=== PATIENT | female | born 1990 | race Caucasian/White ===

== ENCOUNTER 2025-07-28 07:19 | Inpatient (IN) | payer OTHER, SELFPAY ==
--- NOTE | 2025-07-28 08:25 | PM.OBHP.1 ---
OB HPI Date/Time Date of admission: 07/28/25 Date Patient Seen: 07/28/25 Time Patient Seen: 07:30 History of Present Condition Chief complaint: INDUCTION : 2 Para: 0 Estimated Date of Delivery: 07/17/25 Estimated Gestational Age (weeks): 41w4d Narrative: Isadora Smith is a 35 year old female at 41 weeks 5 days by LMP and confirmed by 7 week ultrasound. She presents today for induction of labor. Had vicente catheter placed for cervical ripening 07/27/25 AM, had contractions for approx 4 hours mid-day, then they stopped and was able to pully vicente out without pain approx 2100. Isadora began her with [facility] and transferred to [facility] at 34 weeks. Her was complicated only by AMA, Covid at 38 weeks, Rh negative, GBS positive, and received varicalla vaccination the week of conception. Isadora is here today with her , Uri. They are excited to meet their son. Isadora is planning an epidural. Isadora's NIPT included Rh for baby and this was found to be negative. Indications Indication for induction OB: post dates History of Present care: good care, initiated at week # (7), number of visits (14) and pounds weight gain (24) Dating criteria: LMP confirmed by 1st trimester US Ultrasounds: normal 1st trimester US and normal mid trimester US Obstetrical complications: none Medical complications: immunologic (Covid at 38 weeks) Preadmission Labs Blood type: 0 (-) negative -: Antibody screen: positive (initially positive; repeated for negative), Cystic fibrosis screen: negative, GBS status: positive, HBsAG: negative, HIV: negative and RPR/VDLR: negative -: Chlamydia screen: not detected and Gonorrhea screen: not detected -: Rubella: immune and Varicella: immune HCT: 34.6 HCAB: negative Cell-free DNA: NIPT neg x 3, Rh negative fetus 1 hr GTT: 93 Prior (ies) History: Hx # Term Pregnancies: 0 Hx # Pregnancies: 0 Number of Living Children: 0 Multiple births: 0 Spontaneous abortions: 1 Ectopic pregnancies: 0 Elective abortions: 0 Evaluation Evaluation Baseline heart rate: 125 Variability: Moderate (6-25) monitor accelerations: Present Monitor Decelerations: Absent Contraction Frequency (minutes): 10 (irregular and painless) Category of Tracing: Reactive Dilation (cm): 2 Effacement (%): 60 Dilation: 1-2 cm Effacement: 60-70% station: -3 Position of cervix: posterior Consistency: medium Avila score: 4 PFSH Medical History Miscarriage Dense breast tissue Family History Grandfather Cancer Grandmother Diabetes mellitus Mother Hypothyroid Social History (Updated 07/28/25 @ 08:41 by Cristina Raymond CNM, JUAN) marital status: unmarried,living together number of children: 0 household members: significant other lives independently: Yes housing: house occupational status: employed current occupational exposures/hazards: No do you feel safe at home: Yes alcohol intake: former substance use type: marijuana well-balanced diet: daily or most days eating out: 1-3 times/week Meds Home Medications and Allergies Allergies Allergy/AdvReac Type Severity Reaction Status Date / Time No Known Drug Allergies Allergy Verified 07/28/25 08:32 Review of Systems Review of Systems Narrative: None except for as mentioned in HPI OB Exam Vital signs Blood Pressure: 123/80 Pulse Rate: 98 Respiratory Rate: 18 Temperature: 97.2 F Resp Effort & Inspection: normal respiratory effort and able to speak in complete sentences Auscultation: clear to auscultation bilaterally Cardio Rate: regular rate Rhythm: regular rhythm Heart Sounds: S1 normal, S2 normal and normal, physiologic split S2 GI Inspection: normal to inspection (gravid) Presentation: vertex Estimated Weight (lbs): 9 Objective Labs 07/28/25 08:20 Assessment and Plan Assessment and Plan Assessment and Plan narrative: at 41w4d by LMP GBS positive Rh negative Covid in AMA Intact membranes RNST on admission Admit to L&D with typical labor orders. Continue cervical ripening with misoprostol; plan for pitocin when indicated. Start GBS prophylaxis with active labor OR ROM. Time-Based Coding :: [TOTAL MINUTES] spent with patient and on the chart (including review of chart, obtaining history, exam, reviewing outside data, placing orders, documenting exam and treatment plan, and counseling patient) on [DATE].
[2025-07-28 08:45] VITALS: BP 123/80; PULSE 98; RESP 18; TEMP 36.2
[2025-07-28 08:48] LABS: Add Manual Diff / Slide Review NO; Hematocrit 35.6 % (36-46); Hemoglobin 12.2 g/dL (12.0-16.0); Lymphocytes Absolute Auto 1600 /uL (1100-4500); Mean Corpuscular HGB Conc 34.4 % (30-36); Mean Corpuscular Hemoglobin 32.8 PG (26-34); Mean Corpuscular Volume 95.3 fL (80-100); Platelet Count 131 X10^3/uL (150-400)
--- NOTE | 2025-07-28 13:43 | PM.OBPNLAB ---
Date/Time Date Patient Seen: 07/28/25 Time Patient Seen: 12:43 Pain Control Comments: Isadora is doing well. Feeling very mild contractions, mostly in her back. VS: 131/77, 87, 35.7 C Pelvic Exam Effacement (%): 60 station: -3 Comments: Exam not repeated Contractions Contraction frequency (min): 10 (mild) Contraction pattern: Irregular Status status: Category l Heart Rate Baseline: 125 Monitor Accelerations: Present Monitor Decelerations: Absent Monitor Variability: Moderate Assessment and Plan Assessment: active labor Plan: continuous present management Comments: Repeat misoprostol 50 mcg buccally x 1 Recheck in 4 hours.
[2025-07-28] MEDS: OXYTOCIN PREMIX 30 UNIT/500 ML PLAST..BAG IV (16:56)
[2025-07-28] MEDS: LACTATED RINGERS 1,000 ML 100 ML IV ×2 (16:56→21:53)
--- NOTE | 2025-07-28 19:43 | PM.OBPNLAB ---
Date/Time Date Patient Seen: 07/28/25 Time Patient Seen: 17:30 Pain Control Comments: Isadora is coping well. Wanted to get into the tub after cervical exam. Pain is mild/manageable. Pelvic Exam Dilation (cm): 2.5 Effacement (%): 80 station: -2 Amniotic membrane status: Intact Comments: BP: 129/75 HR: 87 bpm Temp: 35.7 C Contractions Contractions on admission: none Monitor mode: External Pitocin rate (mU/min): 4 Contraction frequency (min): 3 (mild) Contraction duration (min): 1 Contraction pattern: Regular Contraction intensity: Moderate Status status: Category l Heart Rate Baseline: 120 Monitor Accelerations: Present Monitor Decelerations: Absent Monitor Variability: Moderate Assessment and Plan Assessment: active labor Comments: Term nullip GBS positive Post dates Rh negative FHR Cat 1 Pitocin started at 1656 after 2 doses of misoprostol Reviewed good but slow progress
[2025-07-28] MEDS: AMPICILLIN 2,000 MG in SODIUM CHLORIDE 0.9% 100 ML 200 MG IV (20:01)
--- NOTE | 2025-07-28 22:44 | PM.AN.REGBLK ---
Regional Block Pre-procedure Procedure: Continuous Lumbar Epidural for L&D Attending OB provider: Cristina Raymond PMH/ROS narrative: , 41 4/7 weeks, induction for PD, AMA. ROS negative. PSH/Anesthesia history narrative: No history of anesthesia issues Exam narrative: Mall 2, good dentition ASA Class: II Labs: Hct 35.6 % (36-46) L 07/28/25 08:20 Plt Count 131 X10^3/uL (150-400) L 07/28/25 08:20 Medications: Current Medications Generic Name Dose Route Start Last Admin Trade Name Freq PRN Reason Stop Dose Admin Calcium Carbonate 1,000 mg 07/28/25 08:20 Calcium Carbonate 500 Mg Tab PO Q2HR PRN Dyspepsia Carboprost Tromethamine 250 mcg 07/28/25 08:20 Carboprost 250 Mcg/Ml Ampul IM Q90M PRN Bleeding Diphenhydramine HCl 25 mg 07/28/25 22:42 Diphenhydramine 50 Mg/Ml Vial IV Q30M PRN Itching Ephedrine Sulfate 10 mg 07/28/25 22:43 Ephedrine 50 Mg/Ml Vial IV Q5M PRN Blood Pressure - Low Fentanyl 100 mcg 07/28/25 08:20 Fentanyl 100 Mcg/2 Ml Inj IV Q1H PRN Pain, Severe (7-10) Oxytocin/Lactated Ringer's 30 unit in 500 mls @ 200 mls/hr 07/28/25 08:20 Oxytocin Premix IV CONT PRN Bleeding Protocol Tranexamic Acid 1,000 mg/ 100 mls @ 600 mls/hr 07/28/25 08:20 Sodium Chloride IV NOW PRN Bleeding Oxytocin/Lactated Ringer's 30 unit in 500 mls @ 2 mls/hr 07/28/25 08:30 07/28/25 16:56 Oxytocin Premix IV 2 milliunit/min TITRATE DOLORES 2 mls/hr Protocol Administration 2 MILLIUNIT/MIN Lactated Ringer's 1,000 mls @ 999 mls/hr 07/28/25 22:43 Lactated Ringers IV 07/28/25 23:43 BOLUS ONE FENT 2MCG/ML BUPIV 0.125% EPI 200 mcg in 100 mls @ 12 mls/hr 07/28/25 22:45 Fentanyl/Bupiv/Ns 2mcg/Ml - 0.125% EPIDURAL CONT DOLORES Protocol Lidocaine HCl 20 ml 07/28/25 08:20 Lidocaine 1% 20 Ml INJ INTRA-OP PRN Post Delivery Methylergonovine Maleate 0.2 mg 07/28/25 08:20 Methylergonovine 0.2 Mg Tablet PO Q6HR PRN Heavy Bleeding Methylergonovine Maleate 0.2 mg 07/28/25 08:20 Methylergonovine 0.2 Mg/Ml Vial IM NOW PRN Bleeding Mineral Oil 30 ml 07/28/25 08:20 Mineral Oil 30 Ml Udc TOP PRN PRN Version Misoprostol 800 mcg 07/28/25 08:20 Misoprostol 200 Mcg Tablet GA NOW PRN Bleeding Misoprostol 400 mcg 07/28/25 08:20 Misoprostol 200 Mcg Tablet SL NOW PRN Bleeding Misoprostol 50 mcg 07/28/25 08:20 07/28/25 12:25 Misoprostol 25 Mcg Tablet SL 50 mcg Q4H PRN Administration cervical ripening Nalbuphine HCl 5 mg 07/28/25 22:42 Nalbuphine 20 Mg/Ml Ampul IV Q6H PRN Itching Naloxone HCl 0.2 mg 07/28/25 08:20 Naloxone 0.4 Mg/Ml Vial IV Q2MIN PRN Opiate Reversal Naloxone HCl 0.2 mg 07/28/25 22:42 Naloxone 0.4 Mg/Ml Vial IV Q2MIN PRN Opiate Reversal Ondansetron HCl 4 mg 07/28/25 08:20 Ondansetron 4 Mg/2 Ml Inj IV Q4HR PRN Nausea And Vomiting Ondansetron HCl 4 mg 07/28/25 22:42 Ondansetron 4 Mg/2 Ml Inj IV Q4H PRN Nausea And Vomiting Oxytocin 10 unit 07/28/25 08:20 Oxytocin 10 Unit/Ml Vial IM NOW PRN Bleeding Allergies: Allergies Allergy/AdvReac Type Severity Reaction Status Date / Time No Known Drug Allergies Allergy Verified 07/28/25 09:17 Procedure Insertion date: 07/28/25 Insertion time: 22:06 Prep/Local: 1% lidocaine (chloraprep skin prep, dry x 3 min) Interspace: L4-5 Patient position: sitting Needle: 17 gauge Tuohy Loss of resistance with: saline ANNAMARIE at (cm): 7 Catheter placed at SKIN (cm): 14 Catheter in SPACE (cm): 7 Sensory level: T10 Insertion: No CSF, No Blood, No Paresthesia with insertion, No Paresthesia with injection and No Test dose reaction Initial Medications TEST DOSE time: 22: BOLUS DOSE time: 22:36 BOLUS DOSE (mL): 5 BOLUS DOSE med: other (pump solution) Infusion INFUSION: 0.125% bupivacaine and with fentanyl 2 mcg/mL Initial rate (mL/hr): 12 Post-procedure Anesthesia date START: 07/28/25 Anesthesia time START: 22:06 Anesthesia date END: 07/30/25 Anesthesia time END: 17:00 Post-procedure Anesthesia Assessment: Yes CV function: HR/BP stable, Yes Resp function: RR/sat/airway adequate, Yes Post-op hydration adequate, Yes Pain control adequate, Yes Nausea & vomiting absent, Yes Temperature > 36 C, Yes Mental status appropriate and Yes Anesthesia complications
--- NOTE | 2025-07-28 22:50 | PM.OBPNLAB ---
Date/Time Date Patient Seen: 07/28/25 Time Patient Seen: 22:50 Pain Control Pain control: epidural Comments: SROM at 195, copious clear fluid and almost immediately, contractions became more painful. Isadora managed contractions with Uri's support; did not want to try nitrous, opted for epidural, which was placed without complications and she was comfortable by 2244. Reported feeling more pressure. Pitocin had reached 6 mu/min, was decreased to 3 mu/min when contractions became intense and close. Antibiotics for GBS prophylaxis started at 1999. Pelvic Exam Dilation (cm): 4.5 Effacement (%): 90 station: -1 Amniotic membrane status: Ruptured (clear fluid) Comments: SROM 195, clear fluid Contractions Monitor mode: External Pitocin rate (mU/min): 3 Contraction frequency (min): 3 (mild) Contraction duration (min): 1 Contraction pattern: Regular Contraction intensity: Moderate Status status: Category l Heart Rate Baseline: 125 Monitor Accelerations: Present Monitor Decelerations: Absent Monitor Variability: Moderate Assessment and Plan Comments: Term nullip AMA GBS positive FHR Cat 2 Continue present management. Anticipate NSVB.
[2025-07-29] MEDS: AMPICILLIN 1,000 MG in SODIUM CHLORIDE 0.9% 100 ML 200 MG IV ×5 (00:02→21:50)
[2025-07-29] MEDS: FENT 2MCG/ML BUPIV 0.125% EPI 200 MCG/100 ML PLAST..BAG 12 MCG EPIDURAL ×3 (04:10→18:54)
--- NOTE | 2025-07-29 04:25 | PM.OBPNLAB ---
Date/Time Date Patient Seen: 07/29/25 Time Patient Seen: 04:15 Pain Control Pain control: epidural Comments: Isadora comfortable with epidural. Slept a bit initially, now wide awake, as she usually is between [id number] lately. Consents to exam but wants to wait to be sure she's comfortable since she just pressed her button. Pelvic Exam Dilation (cm): 5 Effacement (%): 90 station: -1 Amniotic membrane status: Ruptured (clear fluid) Comments: CE at 0431. Anterior cervix with edema. Smal caput noted on vertex. Easily palpable fontenell at prior exam difficult to find this time. Contractions Monitor mode: External Pitocin rate (mU/min): 10 Contraction frequency (min): 3 (q3-4 with coupling) Contraction duration (min): 1 Contraction pattern: Regular Contraction intensity: Moderate Status status: Category l Heart Rate Baseline: 125 Monitor Accelerations: Present Monitor Decelerations: Absent Monitor Variability: Moderate Assessment and Plan Comments: Term nullip AMA Post dates GBS prophylaxis indicated Epidural FHR Cat 1 Continue present management, including titrating pitocin per protocol. Recommend position changes. Benadryl for edematous cervix.
[2025-07-29] MEDS: diphenhydrAMINE 50 MG/ML VIAL 25 MG IV ×2 (04:56→23:00)
--- NOTE | 2025-07-29 09:00 | PM.OBPNLAB ---
Date/Time Date Patient Seen: 07/29/25 Time Patient Seen: 08:55 Pain Control Pain control: epidural Comments: CNM assuming care from CNChari Raymond. Isadora is resting be bed comfortably with adequate epidural anesthesia. Has been able to rest and recover, very sleepy after IV diphenhydramine. remains present and supportive. VS: BP 126/70, JR 81bpm, T 36.7C Temporal Pelvic Exam Dilation (cm): 6.5 Effacement (%): 80 station: -1 Amniotic membrane status: Ruptured (clear fluid) Comments: mild edema to cervix presentation: LOP, deflexed Contractions Monitor mode: External Pitocin rate (mU/min): 20 Contraction frequency (min): 3 Contraction duration (min): 2 Contraction pattern: Regular Contraction intensity: Moderate Status status: Category ll Heart Rate Baseline: 130 Monitor Accelerations: Present Monitor Decelerations: Early and Variable Monitor Variability: Moderate Assessment and Plan Assessment: active labor (SROM x13 hours without sx of infection) and induction ongoing Plan: continuous present management Comments: Counseled on malpresentation and encouraged position changes to promote flexion and rotation. Reassess in 3 hours or sooner, PRN.
--- NOTE | 2025-07-29 12:00 | PM.OBPNLAB ---
Date/Time Date Patient Seen: 07/29/25 Time Patient Seen: 11:45 Pain Control Pain control: epidural Comments: Cahvez has been changing positions every 30 minutes and remains comfortable with adequate epidural anesthesia. VS: BP 116/73, HR 78bpm, T 36.5C Temporal, SpO2 96% on RA Pelvic Exam Dilation (cm): 7 Effacement (%): 80 station: -1 Amniotic membrane status: Leaking (clear fluid) Comments: LOT Contractions Monitor mode: External Pitocin rate (mU/min): 22 Contraction frequency (min): 3 Contraction duration (min): 1 Contraction pattern: Regular Contraction intensity: Moderate Status status: Category ll Heart Rate Baseline: 130 Monitor Accelerations: Present Monitor Decelerations: Early and Variable Monitor Variability: Moderate Assessment and Plan Assessment: active labor (SROM x 16hrs without sx of infection) and induction ongoing Plan: continuous present management Comments: Continue pitocin titration to maintain adequate contraction pattern. Continue position changes to promote continued rotation. Reassess in 4 hours or GINNY padron.
[2025-07-29] MEDS: LACTATED RINGERS 1,000 ML 100 ML IV (13:00)
--- NOTE | 2025-07-29 16:16 | PM.OBPNLAB ---
Date/Time Date Patient Seen: 07/29/25 Time Patient Seen: 16:00 Pain Control Pain control: epidural Comments: Isadora remains comfortable with adequate epidural anesthesia. Has been moving well, most recently on hands and knees with the CUB. No sensation of rectal pressure. Continues to leak small amounts of clear fluid. VS: BP 123/80, HR 88, T 36.2C Temporal, SpO2 96% on RA Pelvic Exam Dilation (cm): 8 Effacement (%): 80 station: -1 Amniotic membrane status: Leaking (clear fluid) Comments: LOP edema resolved Contractions Monitor mode: External Pitocin rate (mU/min): 25 Contraction frequency (min): 3 Contraction duration (min): 1 Contraction pattern: Regular Contraction intensity: Moderate Status status: Category ll Heart Rate Baseline: 130 Monitor Accelerations: Present Monitor Decelerations: Variable (not recurrent) Monitor Variability: Moderate Assessment and Plan Assessment: active labor (SROM x 20 hours without sx of infection) and induction ongoing Plan: other Comments: Discussed slow labor progress, in the context of SROM x 20 hours. Recommend IUPC to better utilize pitocin, given it is already at high dose of 25mu/min. After discussion of R/B/A including pitocin rest now. Isadora agreed to IUPC which was placed. First ctx after placement appears inadequate so CNM recommends continue pitocin titration to adequate contractions. Discussed max dose of pitocin of 36mu/min. Will turn over to CNM Mandi now.
--- NOTE | 2025-07-29 20:16 | P.PNOB_ITS ---
Date/Time Date Patient Seen: 07/29/25 Time Patient Seen: 19:15 Pain Control Pain control: epidural Comments: Isadora is comfortable with epidural re: contractions but starting to feel antsy after being in bed this long. Does not like it when her legs get number which happens in certain positions and getting anxious about not epidural causing damage to her nerves. She's overall doing okay, and is well supported by Uri. Pelvic Exam Dilation (cm): 9 Effacement (%): 80 station: 0 Amniotic membrane status: Leaking (clear fluid) Comments: Posterior cervix far back on vertex; anterior cervix with mild edema Contractions Monitor mode: External Pitocin rate (mU/min): 33 Contraction frequency (min): 3 Contraction duration (min): 1 Contraction pattern: Regular Contraction intensity: Moderate Intrauterine tone measurement: 180 Status status: Category ll Heart Rate Baseline: 125 Monitor Accelerations: Present Monitor Decelerations: Absent Monitor Variability: Moderate Assessment and Plan Comments: Term nullip Adequate GBS tx Active labor with IUPC in place Consulted with OBGYN interventional physician, Dr. Son regarding high dose of pitocin. She is comfortable going to 40 mu/min and is aware of plan of care. Reassured Isadora about epidural not causing nursing home damage to her legs. Continue present management.
[2025-07-29] MEDS: OXYTOCIN PREMIX 30 UNIT/500 ML PLAST..BAG IV (21:48)
--- NOTE | 2025-07-29 22:23 | PM.OBPNLAB ---
Date/Time Date Patient Seen: 07/29/25 Time Patient Seen: 22:00 Pain Control Pain control: epidural Comments: Isadora sitting in throne, legs numb. Wants to call OB friend to get advice about what to do next. Anxious and uncertain. Does not want emergency ; wants to be sure baby is okay. Also does not want at this time when asked directly. VS: 138/63, 83, 95%, 35.8 C Pelvic Exam Dilation (cm): 9 Effacement (%): 90 station: 0 Amniotic membrane status: Leaking (clear fluid) Contractions Monitor mode: External Pitocin rate (mU/min): 37 Contraction frequency (min): 3 Contraction duration (min): 1 Contraction pattern: Regular Contraction intensity: Moderate Intrauterine tone measurement: 180 Status status: Category l Heart Rate Baseline: 125 Monitor Accelerations: Present Monitor Decelerations: Absent Monitor Variability: Moderate Assessment and Plan Comments: Term nullip in prolonged active labor Antibiotics adequate for GBS Recommend d/c pitocin for break and restart in 2-3 hours to get some sleep, reset receptors. Other options include pitocin to 40 mu/min, recheck in 90 -120 minutes for cervical change. After discussion, Isadora opts for pit break so pitocin turned off just before 2300. Plan to restart pitocin at 2 mu/min at 0100 on 07/30/25. Reviewed that baby is doing very well; low threshold for recommending OR if concerns arise.
[2025-07-29] MEDS: CALCIUM CARBONATE 500 MG TAB 1000 MG PO (23:00)
--- NOTE | 2025-07-30 | PATH_ITS ---
[facility] Accession Number: [id number] No. of containers..01 Tissue . 01 Material submitted: . placenta - PLACENTA . 01 Diagnosis: PLACENTA, : Mature alba placenta, weight 701 grams (95th percentile for 42 weeks gestation). Three vessel umbilical cord without evidence of funisitis. Mild acute chorioamnionitis and few scattered meconium-stained macrophages also present. Placenta with small succenturiate lobe, 3.0 x 2.2 x 0.3 cm, with focal fibrinoid degenerative changes and calcifications. Negative for funisitis or significant infacts. MRV 08/17/2025 1641 Local . 01 Comment: As part of ongoing quality assurance practice manager, selected slides are also reviewed by Dr. Nidhi Esquivel, who agrees with the interpretation. . 01 Electronically signed: . Joseph Goddard MD, Pathologist NPI- [id number] . 01 Gross description: . The specimen is received in formalin, labeled with two patient identifiers and placenta, and consists of a bilobed alba placenta with a small succenturiate lobe. The bilobed placenta measures 25.5 x 19.2 x 1.8 cm and has robison-brown, semitranslucent, marginally inserted membranes. The placenta trimmed weight is 701 g. There is a 47.5 cm in length by 1.4 cm in diameter, white, smooth, glistening, trivascular, centrally inserted umbilical cord. The surface is robison-purple with vessels that arborize the entire bilobed placental disc. The amnion is partially torn from the chorionic plate. The maternal surface is made up of complete and well-formed cotyledons. Sectioning through the placental disc shows a robison-red, beefy, homogenous cut surface that is free of infarcts or clots. There is a 3.0 x 2.2 x 0.3 cm, succenturiate lobe which is well arborized by the umbilical cord vessels and is connected by a 1.6 cm in length membrane bridge. Sectioning of the small thinned succenturiate lobe is otherwise unremarkable. Mortar Man sections are submitted as follows: A1: Proximal distal cord. A2: Membrane rolls. A3: Maternal-based section. A4: Mortar Man section of succenturiate lobe. A5-A7: Mortar Man full-thickness sections of bilobed placental disc. ([id number]) /FRR 08/17/2025 1641 Local . 01 Pathologist provided ICD-10: Z34.90 . 01 CPT . 678407 Specimen Comment: A courtesy copy of this report has been sent to [facility] Pathology Performed at: [address] [facility] [address] [address], [place], [place] [id number] MD Lennox Du MD Phone: [phone]
[2025-07-30] MEDS: AMPICILLIN 1,000 MG in SODIUM CHLORIDE 0.9% 100 ML 200 MG IV ×4 (01:01→12:58)
[2025-07-30] MEDS: FENT 2MCG/ML BUPIV 0.125% EPI 200 MCG/100 ML PLAST..BAG 12 MCG EPIDURAL ×3 (02:12→12:22)
--- NOTE | 2025-07-30 03:41 | PM.OBPNLAB ---
Date/Time Date Patient Seen: 07/30/25 Time Patient Seen: 03:41 Pain Control Pain control: epidural Comments: Isadora finally got some rest with roberta as civil engineering assistant. VS: 122/75, 70 bpm, 36.1 C Pelvic Exam Dilation (cm): 9 Effacement (%): 90 station: 0 Amniotic membrane status: Leaking (clear fluid) Contractions Monitor mode: External Pitocin rate (mU/min): 18 Contraction frequency (min): 3 Contraction duration (min): 2 Contraction pattern: Regular Contraction intensity: Moderate Intrauterine tone measurement: 0 (removed; no longer picking up) Status status: Category l Heart Rate Baseline: 120 Monitor Accelerations: Present Monitor Decelerations: Absent Monitor Variability: Moderate Assessment and Plan Comments: Prolonged active phase Term nullip ROM x 32 h, afebrile FHR Cat 1 Continue titrating pitocin back up; pause at 20 mu/min x 1 hour
[2025-07-30] MEDS: LACTATED RINGERS 1,000 ML 100 ML IV (09:19)
--- NOTE | 2025-07-30 10:04 | PM.OBPNLAB ---
Date/Time Date Patient Seen: 07/30/25 Time Patient Seen: 09:30 Pain Control Pain control: epidural Comments: Isadora got some good sleep overnight. Pelvic Exam Dilation (cm): 9.5 Effacement (%): 100 station: 0 Amniotic membrane status: Leaking (clear fluid) Comments: Very thin anterior lip from 11-2 Contractions Monitor mode: External Pitocin rate (mU/min): 30 Contraction frequency (min): 3 Contraction duration (min): 1 (1-2) Contraction pattern: Regular Contraction intensity: Moderate Intrauterine tone measurement: 0 (removed; no longer picking up) Status status: Category l Heart Rate Baseline: 125 Monitor Accelerations: Present Monitor Decelerations: Absent Monitor Variability: Moderate Assessment and Plan Comments: Term nullip, post dates Prolonged active phase GBS treatment adequate Pitocin induction Position changes for 1-2 hours, then initiate pushing.
--- NOTE | 2025-07-30 14:08 | PM.OBPNLAB ---
Date/Time Date Patient Seen: 07/30/25 Time Patient Seen: 13:45 Pain Control Pain control: epidural Comments: Isadora is pushing well enough to be emptying her bowels and feeling excited to meet her baby. She continues frequent position changes. Pelvic Exam Dilation (cm): 10 Effacement (%): 100 station: 0 Amniotic membrane status: Leaking (clear fluid) Contractions Monitor mode: External Pitocin rate (mU/min): 30 Contraction frequency (min): 3 Contraction duration (min): 2 Contraction pattern: Regular Contraction intensity: Moderate Status status: Category l Heart Rate Baseline: 125 Monitor Accelerations: Present Monitor Decelerations: Absent Monitor Variability: Moderate Assessment and Plan Comments: Term nullip in 2nd stage labor Continue present management.
--- NOTE | 2025-07-30 15:00 | PM.OBPNLAB ---
Date/Time Date Patient Seen: 07/30/25 Time Patient Seen: 15:45 Pain Control Pain control: epidural Comments: Isadora has been pushing well for over 3 hours. Disappointed she has not made much progress and that a is recommended, but accepting. Pelvic Exam Dilation (cm): 10 Effacement (%): 100 station: 0 Amniotic membrane status: Leaking (clear fluid) Contractions Monitor mode: External Pitocin rate (mU/min): 32 Contraction frequency (min): 4 (3-5) Contraction duration (min): 1 (1-2) Contraction pattern: Regular Contraction intensity: Moderate Intrauterine tone measurement: 0 (removed; no longer picking up) Status status: Category l Heart Rate Baseline: 120 Monitor Accelerations: Present Monitor Decelerations: Absent Monitor Variability: Moderate Assessment and Plan Comments: Term nullip 2nd stage labor without descent Recommend .
--- NOTE | 2025-07-30 15:44 | P.OP.PRE_ITS ---
Pre-operative Note COVID-19 COVID-19 status: Not tested Interval Note History & Physical reviewed/Exam performed by Physician: Yes Changes to H&P: No H&P completed within 30 days and has changed as indicated here:: Patient is a [age]yo G1 @ 42wks presented for induction of labor for postdates on 07/28/25. She has had a slow progress of labor and progressed to complete dilation. She pushed for 2 hours and noted to have no progress of descent. Reviewed labor progress and failed descent and discussed recommendation to proceed with section. reviewed risks of including bleeding, pain, infection, injury to surrounding organs/tissues including the bladder, bowel, ureters- -all questions answered. patient and partner present for discussion. Consent signed. Will proceed to the OR when available. 2gm IV ancef and azithyromycin prior to incision. reviewed high hemorrhage risk due to prolonged induction of labor-- patient type and crossed and uterotonics in OR. ASA Class (for procedural sedation): II
[2025-07-30] MEDS: AZITHROMYCIN 500 MG in DEXTROSE 5% IN WATER 250 ML 250 MG IV (16:11)
--- NOTE | 2025-07-30 16:57 | SUR.OPER ---
Supine on padded OR table, arms on arm boards 90 degrees, safety belt is on, pillow and blankets
[2025-07-30 17:21] VITALS: BP 124/72; PULSE 75; RESP 16; TEMP 36.7; O2SAT 98
[2025-07-30 17:25] VITALS: BP 125/60; PULSE 77; RESP 16; O2SAT 99
--- NOTE | 2025-07-30 17:26 | PM.OBCS.1 ---
Operative Date/Time/Diagnoses Date of procedure: 07/30/25 Time of procedure: 16:20 Pre-op diagnosis: IUP @ 42wks Arrest of descent Post-op diagnosis: same Procedure & Clinicians Procedure: Primary Low Transverse section Same procedure(s) as scheduled: Yes Indications: Patient is a 35yo G1 @ 42wks that presented for induction of labor for postdates on 07/28. She is a patient of [facility]. She had a long induction with vicente balloon and pitocin and progressed to complete dilation after ~ 48hours. She had prolonged ruptured of membranes 32 hours. She never developed a fever or any signs of chorioamnionitis. She pushd for 3 hours with minimal descent of the head and I was consulted by [facility] fo section. Discussed indication and risks/benefits with patient and partner and proceeded to the OR. Surgeon: Tri Son Click Yes if Unassisted: Yes Street Flusher Driver: Cristina Raymond Reason for Street Flusher Driver: The special education assistant was necessary to retract upon entry into the abdomen and uterus. She assisted with delivery of the with fundal pressure. She assisted with closure with retraction, clipping of suture, and closure of the contralateral fascia. Anesthesia Type: Epidural Operative Notes Findings: viable male infant, apgars- 9/9, weight not yet available, clear amniotic fluid, 3VC intact placenta with a succentuate lobe, nuchal cord x 1, normal tubes and ovaries bilaterally Closure Type: primary Specimen(s): cord blood and placenta Intraoperative meds administered: Ketorolac and Pitocin Applied: Catheter Estimated Blood Loss (mL): 550 Blood products transfused: none Procedure in detail: Under Spinal anaesthetic with a vicente catheter inserted, the patient was prepped and draped in the usual sterile fashion in the supine position with a leftward tilt. A Pfannenstiel skin incision was made. The incision was carried down to the fascia with sharp dissection and cautery. The fascia was incised transversely and dissected off the rectus muscle using blunt and sharp dissection. Electrocautery was used for hemostasis. The peritoneum was opened taking care not to injure the bladder. The bladder and uterine serosa were noted to be edematous. The vesicouterine peritoneum was dissected off the lower uterine segment. The lower segment was assessed and a low transverse incision was made. The uterine incision was extended bluntly in cephalocaudad direction. The fetus was presenting as vertex. The head was delivered without difficulty and the rest of the body followed easily. After one minute of delayed cord clamping, the cord was clamped twice and cut and the baby transferred to the warmer, awaiting the nursing staff. Cord gases were then obtained. The placenta was then delivered spontaneously with assistance. The uterus was explored and cleared of all clots and debris. The uterine incision was then closed in 2 layers. The first layer was locking and the second was imbricating. 0-vicryl was used for the first layer and 0- monocryl for the second layer. Tubes and ovaries were examined and appeared normal. The uterine fundus was firm but the lower segment was atonus. Tranexamic acid and methergine given to reduce hemorrhage risk and Pitocin running since cord clamping. The hysterotomy was confirmed to be hemostatic. The fascia was closed using 0- vicryl in a running unlocked fashion. The subcutaneous adipose was approximated with 3-0 Chromic with interrupted stitches. The skin was then re approximated with a running monocryl subcuticular suture. At the end of the procedure all sponges, instruments, and sharps were counted and correct. Estimated blood loss was 550 ml. The patient and baby were taken to the recovery in stable condition. of note-- there was a mild odor at time of delivery concerning for chorioamnionitis. Will send placenta to pathology. Patient has been afebrile and otherwise no signs of chorioamnionitis so will not start antibiotics but will monitor for signs of endometritis. Complications: none Post-operative Condition: stable Disposition: PACU Aftercare: routine postop
[2025-07-30 17:30] VITALS: BP 123/65; PULSE 73; RESP 22; O2SAT 100
[2025-07-30 17:42] VITALS: BP 121/71; PULSE 72; RESP 16; TEMP 36.9; O2SAT 98
[2025-07-30] MEDS: ACETAMINOPHEN 325 MG TABLET 650 MG PO (19:11)
[2025-07-30] MEDS: LANOLIN OINT 7 GM 1 APPLIC TOP (20:01)
[2025-07-30] MEDS: KETOROLAC 30 MG/ML VIAL IV (23:01)
[2025-07-31] MEDS: ACETAMINOPHEN 325 MG TABLET 650 MG PO ×5 (01:06→23:24)
[2025-07-31] MEDS: KETOROLAC 30 MG/ML VIAL IV ×2 (05:59→11:42)
[2025-07-31 06:15] LABS: Add Manual Diff / Slide Review NO; Hematocrit 35.0 % (36-46); Hemoglobin 12.2 g/dL (12.0-16.0); Lymphocytes Absolute Auto 1000 /uL (1100-4500); Mean Corpuscular HGB Conc 34.9 % (30-36); Mean Corpuscular Hemoglobin 32.9 PG (26-34); Mean Corpuscular Volume 94.3 fL (80-100); Platelet Count 143 X10^3/uL (150-400)
[2025-07-31] MEDS: DOCUSATE 100 MG CAPSULE PO (11:43)
[2025-07-31] MEDS: SIMETHICONE 80 MG TABLET PO ×2 (11:43→16:45)
--- NOTE | 2025-07-31 13:51 | P.PNOB_ITS ---
Subjective - OB Subjective Patient comments: pain well controlled and tolerating diet; no flatus present [place] baby status: doing well and nursing well [place] feeding status: exclusively breast feeding Narrative: Patient doing well today. + spontaneous urination. not yet passing flatus. still having some numbness/heaviness in the left leg. Ambulated to the bathroom. baby healthy in room. reports pain well conrolled with toradol and tylenol Date Patient Seen: 07/31/25 Time Patient Seen: 13:53 Exam Vital Signs (past 8 hours): Oxygen Delivery Method Room Air Narrative Exam Narrative: General- AAO x3, NAD abdomen- soft, nondistended dresing- clean and dry lochia- minimal Objective Labs 07/31/25 06:09 Labs: Laboratory Results - last 24 hr 07/31/25 06:09 WBC 16.5 H RBC 3.71 L Hgb 12.2 Hct 35.0 L MCV 94.3 MCH 32.9 MCHC 34.9 RDW 13.2 Plt Count 143 L Neut % (Auto) 87.7 H Lymph % (Auto) 6.2 L [place] % (Auto) 5.8 Eos % (Auto) 0.0 L Baso % (Auto) 0.3 Neut # (Auto) 73179 H Lymph # (Auto) 1000 L [place] # (Auto) 1000 H Eos # (Auto) 0 Baso # (Auto) 100 Assessment & Plan Plan day: 1 plan OB: routine postop care Comments: Patient is a 35yo G1 now P1001 s/p PLTCS for arrest of descent 1. /postop day 1 - doing well - pain controlled with toradol and tylenol - + spontenaous urination - encouarged ambulation - - baby healthy in room dispo- anticipate discharge home tomorrow Time-Based Coding :: [TOTAL MINUTES] spent with patient and on the chart (including review of chart, obtaining history, exam, reviewing outside data, placing orders, documenting exam and treatment plan, and counseling patient) on [DATE].
[2025-07-31] MEDS: IBUPROFEN 600 MG TABLET PO ×2 (17:34→23:24)
[2025-08-01] MEDS: IBUPROFEN 600 MG TABLET PO ×2 (05:04→11:16)
[2025-08-01] MEDS: ACETAMINOPHEN 325 MG TABLET 650 MG PO ×2 (05:04→11:16)
--- NOTE | 2025-08-01 14:15 | P.DS_ITS ---
Discharge Providers Provider Date of admission: 07/28/25 07:19 Discharge Date: 08/01/25 Consults: 07/28/25 08:20 Consult to Anesthesiology Urgent Comment: Consulting Provider: Anesthesiologist Reason for consultation: Epidural 07/30/25 17:22 Consult to Computer Systems Designer Routine Comment: Discharge provider: Tri Son DO Summary Hospital Course Date Patient Seen: 08/01/25 Time Patient Seen: 14:15 Diagnoses: Primary section, arrest of descent Hospital Course: Patient is a 35yo G1 now P1001 who presented to L&D for scheduled induction of labor for postdates. She had a long induction of labor and eventually progressed to complete dilation. She pushed for 3 hours and had minimal descent so decision made to proceed with section. Minerva had an uncomplicated section with a primary low transverse hysterotomy. She had an uncomplicated course and discharged home on POD #2. baby healthy in room. exclusively. Peripartum Data Delivery Method: Section Procedures: Primary Low transverse section, epidural complications: none Status at Discharge Cognitive/behavioral status at discharge: oriented Functional status at discharge: independent ambulation Overall status at discharge: patient is progressing back to baseline Time Spent with Patient Time attestation: Total time spent providing and/or coordinating discharge services: Time spent: Less than 30 minutes Specific discharge activities: pelvic rest x 6 weeks, no lifting >20 lbs for 6 weeks Objective Labs 07/31/25 06:09 Exam Vital Signs (past 8 hours): Oxygen Delivery Method Room Air Narrative Exam Narrative: General- AAO x3, NAD abdomen- soft, nontender incision- well healed, skin intact-- no drainage or erythema lower extremities- 1+ pitting edema bilaterally Discharge Plan Discharge Plan Patient Disposition: Home Discharge orders & Medications Prescriptions: New oxycodone 5 mg Tablet 5 mg PO Q3HR PRN (Reason: Pain, Moderate (4-6)) 7 Days Qty: 7 0RF Diet/Activity/Treatments Diet: Regular Skin/Wound/Dressing Care Report to your healthcare provider any signs of infection, such as:: chills, fever, increased pain, unusual drainage and unusual redness Visit Report/Discharge Packet Stand Alone Forms: Patient Portal/API, Stroke Signs & Symptoms
[2025-08-01 15:41] VITALS: BP 121/71; PULSE 72; RESP 16; TEMP 36.9
== END 2025-08-01 18:02 | disposition home or self-care (01) | DRG 788 ==
PROVIDERS: Advanced Practice Midwife; Admitting Provider Obstetrics & Gynecology; Referring Provider Obstetrics & Gynecology; Visit Provider Obstetrics & Gynecology
PROC: 10D00Z1 Extraction of Products of Conception, Low, Open Approach (ICD-10-PCS; CPT 59514; principal; 2025-07-30 16:30)
DX: O48.0 Post-term pregnancy (principal); Z3A.42 42 weeks gestation of pregnancy; O62.1 Secondary uterine inertia; Z37.0 Single live birth; O99.824 Streptococcus B carrier state complicating childbirth; O76 Abnormality in fetal heart rate and rhythm complicating labor and delivery; Z67.41 Type O blood, Rh negative
CPT/HCPCS: 36415; 59050; 59200; 59514; 85025; 86850; 86900; 86901; 99238; G0379; J0290; J0689; J1100; J1171; J1200; J1885; J2274; J2405; J2590; J7050; J7060; J7120

== ENCOUNTER → 2025-08-09 15:59 | Outpatient (ROUT) | payer OTHER, SELFPAY ==
[2025-08-09 16:04] LABS: Hematocrit 37.8 % (36-46); Hemoglobin 12.8 g/dL (12.0-16.0)
[2025-08-09 16:12] LABS: Alanine Aminotransferase 30 IU/L (<35); Albumin 3.9 g/dL (3.5-5.0); Albumin Globulin Ratio 1.3 (1.0-2.8); Alkaline Phosphatase 99 U/L (38-126); Blood Urea Nitrogen 18 mg/dL (7-17); Calcium 9.1 mg/dL (8.4-10.2); Carbon Dioxide 25 mmol/L (22-32); Chloride 104 mmol/L (98-107); Estimated Glomerular Filt Rate > 60 mL/min (>60); Globulin 2.9 g/dL (1.7-4.1); Glucose 76 mg/dL (70-99); HEMOLYSIS 28 (0-50); Potassium 4.4 mmol/L (3.4-5.1); Sodium 136 mmol/L (137-145); Total Protein 6.8 g/dL (6.3-8.2); Uric Acid 4.2 mg/dL (2.5-6.2)
[2025-08-09 17:10] LABS: Mean Corpuscular HGB Conc 33.9 % (30-36); Mean Corpuscular Hemoglobin 32.9 PG (26-34); Mean Corpuscular Volume 96.9 fL (80-100); Platelet Count 288 X10^3/uL (150-400)
== END ==
PROVIDERS: Visit Provider Advanced Practice Midwife
DX: O16.5 Unspecified maternal hypertension, complicating the puerperium (principal)
CPT/HCPCS: 80053; 84550; 85027